=== PATIENT | female | born 1960 | race Caucasian/White ===

== ENCOUNTER 2020-09-29 10:23 | Outpatient (CLI) | payer MEDICARE, MEDICAID ==
[2020-09-29 11:07] LABS: BASOPHILS % (AUTO) 0.3 %; EOSINOPHILS # (AUTO) 0.1 10^3/uL (0.0-0.7); EOSINOPHILS % (AUTO) 1.2 %; HCT - HEMATOCRIT 45.2 % (37.0-47.0); HGB - HEMOGLOBIN 14.7 g/dL (12.0-16.0); LYMPHOCYTES % (AUTO) 26.6 %; MEAN CORPUSCULAR HEMOGLOBIN 30.6 pg (27.0-31.0); MEAN CORPUSCULAR HGB CONC 32.5 g/dL (32.0-36.0); MEAN CORPUSCULAR VOLUME 94.2 fL (81.0-99.0); MEAN PLATELET VOLUME 9.6 fL (7.9-10.8); MONOCYTES # (AUTO) 0.5 10^3/uL (0.0-1.0); MONOCYTES % (AUTO) 6.2 %; NEUTROPHILS % (AUTO) 65.4 %; PLT - PLATELET COUNT 243 10^3/uL (130-450); RED CELL DISTRIBUTION WIDTH 13.1 % (12.0-15.0); WHITE BLOOD COUNT 7.6 x10^3/uL (4.8-10.8)
[2020-09-29 11:26] LABS: ALBUMIN 4.4 g/dL (3.2-5.5); ALBUMIN/GLOBULIN RATIO 1.4 (1.0-2.2); ALKALINE PHOSPHATASE 60 IU/L (42-121); ALT ALANINE AMINOTRANSFERASE 17 IU/L (10-60); AST ASPARTATE AMINOTRANSFERASE 17 IU/L (10-42); BILIRUBIN,TOTAL 0.6 mg/dL (0.2-1.0); BUN - BLOOD UREA NITROGEN 15 mg/dL (6-20); CALCIUM 10.1 mg/dL (8.5-10.3); CARBON DIOXIDE - CO2 26 mmol/L (21-32); CHLORIDE 102 mmol/L (101-111); CHOL/HDL RATIO 4.4 (<4.4); CHOLESTEROL 188 mg/dL; CREATININE 0.8 mg/dL (0.4-1.0); GFR - MDRD 73 (>89); GLUCOSE 160 mg/dL (70-100); HDL CHOLESTEROL 43 mg/dL; LDL CHOLESTEROL,CALCULATED 116 mg/dL; LDL/HDL RATIO 2.7 (<4.4); POTASSIUM 3.8 mmol/L (3.5-5.0); SODIUM 138 mmol/L (135-145); TOTAL PROTEIN 7.6 g/dL (6.7-8.2); TRIGLYCERIDES 144 mg/dL; VLDL CHOLESTEROL 29 mg/dL
[2020-09-29 12:43] LABS: ESTIMATED AVERAGE GLUCOSE 148 mg/dL (70-100); HEMOGLOBIN A1c% 6.8 % (4.27-6.07)
== END 2020-09-29 10:24 | disposition home or self-care (01) ==
LOC: LAB 10:23
PROVIDERS: ATTEND Internal Medicine
DX: E78.5 Hyperlipidemia, unspecified (principal); Z79.899 Other long term (current) drug therapy; E11.9 Type 2 diabetes mellitus without complications
CPT/HCPCS: 36415; 80053; 80061; 83036; 83721; 85025

== ENCOUNTER 2021-05-04 12:54 | Outpatient (CLI) | payer MEDICARE, MEDICAID, OTHER | END 2021-05-04 12:55 | disposition home or self-care (01) | LOC: LAB 12:54 | PROVIDERS: ATTEND Internal Medicine | DX: E11.9 Type 2 diabetes mellitus without complications (principal); Z79.899 Other long term (current) drug therapy ==

== ENCOUNTER 2022-03-07 09:56 | Outpatient (CLI) | payer MEDICARE ==
[2022-03-07 10:18] LABS: BASOPHILS % (AUTO) 0.4 %; EOSINOPHILS # (AUTO) 0.1 10^3/uL (0.0-0.7); EOSINOPHILS % (AUTO) 1.1 %; HCT - HEMATOCRIT 45.2 % (37.0-47.0); HGB - HEMOGLOBIN 15.3 g/dL (12.0-16.0); LYMPHOCYTES % (AUTO) 25.6 %; MEAN CORPUSCULAR HEMOGLOBIN 31.5 pg (27.0-31.0); MEAN CORPUSCULAR HGB CONC 33.8 g/dL (32.0-36.0); MEAN PLATELET VOLUME 9.9 fL (7.9-10.8); MONOCYTES # (AUTO) 0.6 10^3/uL (0.0-1.0); MONOCYTES % (AUTO) 7.3 %; NEUTROPHILS # (AUTO) 5.2 10^3/uL (1.5-6.6); NEUTROPHILS % (AUTO) 65.3 %; PLT - PLATELET COUNT 234 10^3/uL (130-450); RED BLOOD COUNT 4.86 10^6/uL (4.20-5.40); RED CELL DISTRIBUTION WIDTH 12.7 % (12.0-15.0); WHITE BLOOD COUNT 7.9 x10^3/uL (4.8-10.8)
[2022-03-07 10:40] LABS: ALBUMIN 4.6 g/dL (3.2-5.5); ALBUMIN/GLOBULIN RATIO 1.4 (1.0-2.2); ALKALINE PHOSPHATASE 52 IU/L (42-121); ALT ALANINE AMINOTRANSFERASE 16 IU/L (10-60); AST ASPARTATE AMINOTRANSFERASE 17 IU/L (10-42); BILIRUBIN,TOTAL 0.7 mg/dL (0.2-1.0); BUN - BLOOD UREA NITROGEN 15 mg/dL (6-20); CALCIUM 10.1 mg/dL (8.5-10.3); CARBON DIOXIDE - CO2 26 mmol/L (21-32); CHLORIDE 108 mmol/L (101-111); CHOL/HDL RATIO 5.8 (<4.4); CHOLESTEROL 255 mg/dL; CREATININE 0.8 mg/dL (0.4-1.0); GFR - MDRD 73 (>89); GLUCOSE 140 mg/dL (70-100); HDL CHOLESTEROL 44 mg/dL; LDL CHOLESTEROL,CALCULATED 188 mg/dL; LDL/HDL RATIO 4.3 (<4.4); POTASSIUM 4.4 mmol/L (3.5-5.0); SODIUM 143 mmol/L (135-145); TOTAL PROTEIN 7.9 g/dL (6.7-8.2); TRIGLYCERIDES 113 mg/dL; VLDL CHOLESTEROL 23 mg/dL
[2022-03-07 10:49] LABS: CREATININE,URINE 165.9 mg/dL; MICROALBUM/CREATININE RATIO,UR 5.4 ug/mg (<30.0); MICROALBUMIN,URINE 0.9 mg/dL (0-300.0)
[2022-03-07 12:51] LABS: ESTIMATED AVERAGE GLUCOSE 146 mg/dL (70-100); HEMOGLOBIN A1c% 6.7 % (4.27-6.07)
== END 2022-03-07 09:57 | disposition home or self-care (01) ==
LOC: LAB 09:56
PROVIDERS: ATTEND Physician Assistant
DX: E11.9 Type 2 diabetes mellitus without complications (principal); E78.5 Hyperlipidemia, unspecified; Z79.899 Other long term (current) drug therapy
CPT/HCPCS: 36415; 80053; 80061; 82043; 82570; 83036; 83721; 85025

== ENCOUNTER 2022-04-08 10:45 | Outpatient (CLI) | payer MEDICARE ==
--- NOTE | 2022-04-11 10:04 | Mammography Report ---
UNILATERAL RIGHT DIGITAL DIAGNOSTIC MAMMOGRAM 3D/2D: 04/08/2022 CLINICAL: Patient returns for magnification views of microcalcifications in the right breast. Also, p atient returns for focal architectural distortion in the right breast. Comparison is made to exam dated: 02/21/2022 mammogram - [facility]. The right breast is heterogeneously dense, which may obscure small masses (category c / 51-75% glandu lar tissue). There are grouped fine dystrophic calcifications in the right breast at 10 o'clock posterior depth. There also is a possible benign architectural distortion in the right breast at 12 o'clock anterior d epth. This is not seen in additional views. No other significant masses or calcifications are seen in the breast. IMPRESSION: INCOMPLETE: NEEDS ADDITIONAL IMAGING EVALUATION The grouped fine dystrophic calcifications in the right breast at 10 o'clock posterior depth are inde terminate. A targeted ultrasound is recommended and will immediately follow. Based on the Tyrer Cuzick model (a risk assessment model) the patients lifetime risk is 7.5% and her 10 year risk is 3.1%. According to the ACR, ACS, and NCCN guidelines, an annual breast MRI exam saige g with mammogram is recommended if the patients lifetime risk is 20% or greater. This exam was interpreted at Station ID: [id number]. NOTE: For mammograms, a report in lay terms will be sent to the patient. Approximately 15% of breast malignancies will not be visualized mammographically. In the management of a palpable breast mass, a negative mammogram must not discourage biopsy of a clinically suspicious lesion. Electronically Signed By: Rigo Monk M.D. slc/:04/08/2022 11:37:09 ACR BI-RADS Category 0: Incomplete 3340F PARENCHYMAL PATTERN: (D) - The breast(s) demonstrate(s) heterogeneously dense fibroglandular pargabriel ma. BI-RADS CATEGORY: (0) - 0 Ultrasound [id number] Immediate follow-up LATERALITY: (B)
--- NOTE | 2022-04-11 10:05 | Ultrasound Report ---
LIMITED ULTRASOUND OF RIGHT BREAST AND AXILLA: 04/08/2022 CLINICAL: Patient returns today to evaluate a focal asymmetry in the right breast. Comparison is made to exams dated: 04/08/2022 mammogram and 02/21/2022 mammogram - [facility]. Color flow and real-time ultrasound of the right breast 10 o'clock, and axilla regions were performed . Sherwood scale images of the real-time examination were reviewed. There is a 1.9 cm x 1.3 cm x 0.9 cm irregular mass in the right breast at 10 o'clock posterior depth 9 cm from the nipple. This irregular mass is hypoechoic. This correlates with mammography findings. There are related micro calcifications. Color flow imaging demonstrates that there is vascularity present. There also is a 1.2 cm x 1.1 cm x 0.5 cm oval mass with a circumscribed margin in the right breast at 10 o'clock middle depth 7 cm from the nipple. This oval mass is hypoechoic with a well-defined boun jb. This correlates as an incidental finding. Color flow imaging demonstrates that there is vascu larity present. This mass is located 2.4 cm from the irregular mass. No significant abnormalities were seen sonographically in the right axilla. IMPRESSION: SUSPICIOUS OF MALIGNANCY 1) The 1.9 cm x 1.3 cm x 0.9 cm irregular mass in the right breast at 10 o'clock posterior depth is a t a moderate suspicion for malignancy. -An ultrasound guided biopsy is recommended. 2) The 1.2 cm x 1.1 cm x 0.5 cm oval mass in the right breast at 10 o'clock middle depth resembles a fibroadenoma and is at a low suspicion for malignancy. This is located 2.4 cm from the above mass. -Given the proximity to the suspicious irregular mass, biopsy can be deferred at this time. 3) No suspicious right axillary nodes demonstrated. Exam findings were discussed with the patient by Dr. Bae. This exam was interpreted at Station ID: [id number]. Electronically Signed By: Rigo Monk M.D. slc/:04/08/2022 13:10:45 Ultrasound BI-RADS: 4b Moderate suspicion of malignancy BI-RADS CATEGORY: (4b) - Mod Susp Biopsy [id number] Immediate follow-up LATERALITY: (R)
== END 2022-04-08 10:46 | disposition home or self-care (01) ==
LOC: DI 10:45
PROVIDERS: ATTEND Physician Assistant
DX: N63.11 Unspecified lump in the right breast, upper outer quadrant (principal)

== ENCOUNTER 2022-04-14 12:47 | Outpatient (CLI) | payer MEDICARE ==
[~2022-04-14 12:47] MED LIST: LIDOCAINE 1%-EPI 1:100000 20 ML MDV ONE; lidocaine 1% 20 ML MDV ONE
[2022-04-14] MEDS ORDERED: lidocaine 1% 20 ML MDV SUBQ ONE (14:25)
[2022-04-14] MEDS ORDERED: LIDOCAINE 1%-EPI 1:100000 20 ML MDV SUBQ ONE (14:26)
--- NOTE | 2022-04-18 10:17 | Mammography Report ---
UNILATERAL RIGHT DIGITAL DIAGNOSTIC MAMMOGRAM 3D/2D: 04/14/2022 CLINICAL: Post right breast ultrasound biopsy clip placement imaging. Comparison is made to exams dated: 04/08/2022 mammogram and 02/21/2022 mammogram - [facility]. The right breast is heterogeneously dense, which may obscure small masses (category c / 51-75% gland ular tissue). There is a mass in the right breast posterior depth lateral region seen on the craniocaudal view only . There also is a marker clip in the appropriate position in the right breast posterior depth central t o the nipple seen on the mediolateral oblique view only. This marker clip placement is at the biopsy site. No other significant masses or calcifications are seen in the breast. IMPRESSION: INCOMPLETE: NEEDS ADDITIONAL IMAGING EVALUATION The mass in the right breast posterior depth lateral region seen on the craniocaudal view only needs additional evaluation. There was a successful marker clip placement in the right breast posterior depth central to the nippl e seen on the mediolateral oblique view only. Based on the Tyrer Cuzick model (a risk assessment model) the patients lifetime risk is 7.5% and her 10 year risk is 3.1%. According to the ACR, ACS, and NCCN guidelines, an annual breast MRI exam saige g with mammogram is recommended if the patients lifetime risk is 20% or greater. This exam was interpreted at Station ID: [id number]. NOTE: For mammograms, a report in lay terms will be sent to the patient. Approximately 15% of breast malignancies will not be visualized mammographically. In the management of a palpable breast mass, a negative mammogram must not discourage biopsy of a clinically suspicious lesion. Electronically Signed By: Darrel delacruz/zulema:04/14/2022 14:49:11 ACR BI-RADS Category 0: Incomplete 3340F PARENCHYMAL PATTERN: (D) - The breast(s) demonstrate(s) heterogeneously dense fibroglandular parenchy ma. BI-RADS CATEGORY: (0) - 0 RECOMMENDATION: (ADDMAM) - Recommend additional mammographic views. recall n/a LATERALITY: (B)
--- NOTE | 2022-04-25 09:19 | Ultrasound Report ---
MULTIPLE ULTRASOUND GUIDED BIOPSIES RIGHT BREAST USING VACUUM DEVICE WITH MARKING DEVICE INSERTED AND POST MAMMOGRAPHIC IMAGIN04/14/2022 CLINICAL: Right breast mass. PATIENT CONSENT: Risks (minor bleeding, infection, vasovagal reaction and repeat procedure), benefits and alternatives were explained to the patient and written informed consent was obtained. Correlation is made to exams dated: 04/14/2022 mammogram, 04/08/2022 ultrasound, 04/08/2022 mammogram, and 02/21/2022 mammogram - Located within [facility]. An ultrasound guided biopsy using real-time ultrasound was performed for the concerning 1.9 cm x 1.3 cm x 0.9 cm indistinct oval mass located in the right breast at 10 o'clock posterior depth 9 cm from the nipple. This was described on the previous ultrasound report. The skin was prepped in the usual manner. Local anesthetic was administered to the access site. A small incision was made in the casey ast. The abnormality was approached from the lateral aspect. A 13 gauge biopsy needle was placed ad jacent to the abnormality under ultrasound guidance. Once the needle was documented to be in the cor rect location, six specimens were obtained using the Mammotome biopsy system. A hydromark T4 clip wa s inserted into the biopsy cavity. A skin closure strip and a sterile dressing were applied to the a ccess site. Post procedure mammographic imaging demonstrates the location device at the targeted are a. The specimens were sent to the laboratory for pathological analysis. A second ultrasound guided biopsy using real-time ultrasound was performed for the 1.2 cm x 1.1 cm x 0.5 cm abnormality located in the right breast at 10 o'clock middle depth 7 cm from the nipple. The skin was prepped in the usual manner. A biopsy needle was placed adjacent to the abnormality under u ltrasound guidance. Once the needle was documented to be in the correct location, a specimen was obt ained using an automated biopsy gun. The specimen was sent to the laboratory for pathological analys is. IMPRESSION: ULTRASOUND GUIDED BIOPSY BENIGN Ultrasound guided biopsy of the 1.9 cm x 1.3 cm x 0.9 cm mass in the right breast at 10 o'clock poste rior depth 9 cm from the nipple was successful. "Pathology indicates fibrofatty breast parenchyma wi th ectatic and focally ruptured ducts. Fibrocystic changes". Pathology and radiology results are conc ordant. Recommend follow up right mammogram and ultrasound in 6 months to document stability. This exam was interpreted at Station ID: [id number]. Darrel Solis M.D. [facility],aty/:04/22/2022 22:05:35 BI-RADS CATEGORY: () - Mammo and [place] [id number] 6 month follow-up LATERALITY: (R)
== END 2022-04-14 12:48 | disposition home or self-care (01) ==
LOC: DI 12:47
PROVIDERS: ATTEND Physician Assistant
DX: N60.11 Diffuse cystic mastopathy of right breast (principal)
CPT/HCPCS: 19083

== ENCOUNTER 2022-07-08 13:06 | Outpatient (CLI) | payer MEDICARE ==
--- NOTE | 2022-07-08 15:10 | CT Report ---
PROCEDURE: CHEST WO INDICATIONS: PULMONARY NODULE TECHNIQUE: Noncontrast 1mm axial images were acquired from the pulmonary apices to the posterior costophrenic an gles. Axial 5 mm soft tissue kernel reconstructions were performed as well as 8 mm axial MIP and cor onal and sagittal 5 mm reformations. For radiation dose reduction, the following was used: automate d exposure control, adjustment of mA and/or kV according to patient size. COMPARISON: 02/21/2022 FINDINGS: Image quality: Excellent. Lungs and pleura: Again noted is a very subtle groundglass opacity with mild spiculations in the rela tively central portion of the right lower lobe. When comparing current image 159/14 previous image 17 2/4, there is a suggestion that it may be slightly increased in density compared to the previous stud y. The overall measurements are not significantly changed. It measures approximately 12 x 10 x 8 mm. No new or increasing pulmonary nodules. Calcified granuloma or hamartoma again noted in the medial r ight apex on current image 62/4. No acute air space opacities. No pleural effusions or pneumothorax. Central and peripheral airways are patent and normal in caliber. Mediastinum: Heart size is normal. No pericardial effusion. No mediastinal adenopathy by size crit eria. Thoracic aorta and central pulmonary arteries are normal in size. Esophagus is normal in arthur josé miguel. No hiatal hernia. Bones and chest wall: No suspicious bony lesions. No vertebral body compression fractures. No axil kermit or supraclavicular adenopathy by size criteria. The thyroid is normal in size and there are no incidental findings. Abdomen: Visualized upper abdominal solid organs and bowel loops appear normal in the absence of con trast. IMPRESSION: 1. The overall size of the groundglass opacity in the right lower lobe is not significantly changed. However, there is a suggestion that there may be slight interval increase in density. This can potent ially represent a small indolent carcinoma in situ. Therefore, recommend repeat CT in 6 months. CLINICAL RECOMMENDATION STATEMENTS: In patients <35 years with an ITN detected on CT, MRI, or extrathyroidal ultrasound, the Committee re commends further evaluation with dedicated thyroid ultrasound if the nodule is "e1 cm and has no susp icious imaging features, and if the patient has normal life expectancy. In patients "e35 years with an ITN detected on CT, MRI, or extrathyroidal ultrasound, the Committee r ecommends further evaluation with dedicated thyroid ultrasound if the nodule is "e1.5 cm and has no s uspicious imaging features, and if the patient has normal life expectancy. (ACR, 2014) Reviewed by: Darrel Sinha MD on 07/08/2022 3:09 PM PST Approved by: Darrel Sinha MD on 07/08/2022 3:09 PM PST Station ID: [id number]
== END 2022-07-08 13:07 | disposition home or self-care (01) ==
LOC: DI 13:06
PROVIDERS: ATTEND Physician Assistant
DX: R91.8 Other nonspecific abnormal finding of lung field (principal)

== ENCOUNTER 2022-08-12 10:15 | Outpatient (CLI) | payer MEDICARE ==
[2022-08-12 11:01] LABS: CALCIUM 9.7 mg/dL (8.5-10.3); CREATININE 0.9 mg/dL (0.4-1.0); POTASSIUM 4.1 mmol/L (3.5-5.0)
[2022-08-12 11:06] LABS: CREATININE,URINE 126.5 mg/dL; MICROALBUM/CREATININE RATIO,UR 7.9 ug/mg (<30.0)
[2022-08-12 12:11] LABS: ESTIMATED AVERAGE GLUCOSE 151 mg/dL (70-100); HEMOGLOBIN A1c% 6.9 % (4.27-6.07)
== END 2022-08-12 10:16 | disposition home or self-care (01) ==
LOC: LAB 10:15
PROVIDERS: ATTEND Physician Assistant
DX: E11.9 Type 2 diabetes mellitus without complications (principal)
CPT/HCPCS: 36415; 80048; 82043; 82570; 83036

== ENCOUNTER 2022-11-12 08:26 | Outpatient (CLI) | payer MEDICARE, MEDICAID ==
[2022-11-12 08:53] LABS: CALCIUM 9.6 mg/dL (8.5-10.3); CREATININE 0.8 mg/dL (0.4-1.0); POTASSIUM 4.2 mmol/L (3.5-5.0)
[2022-11-12 11:36] LABS: ESTIMATED AVERAGE GLUCOSE 151 mg/dL (70-100); HEMOGLOBIN A1c% 6.9 % (4.27-6.07)
== END 2022-11-12 08:27 | disposition home or self-care (01) ==
LOC: LAB 08:26
PROVIDERS: ATTEND Physician Assistant
DX: E11.9 Type 2 diabetes mellitus without complications (principal)
CPT/HCPCS: 36415; 80048; 83036

== ENCOUNTER 2023-01-12 06:20 | Day surgery (SDC) | payer MEDICARE, MEDICAID ==
[2023-01-12] MEDS ORDERED: LACTATED RINGERS 1,000 ML IV ONE ×2 (06:43→08:12)
--- NOTE | 2023-01-12 06:58 | ANESTHESIA ---
Pre-Anesthesia VS, & Labs - Diagnosis hx of colon polyps - Procedure colonoscopy Vital Signs: Temp Pulse Resp BP Pulse Ox O2 Flow Rate 36.3 C L 69 10 L 126/90 H 96 0 01/12/23 06:43 01/12/23 06:43 01/12/23 06:43 01/12/23 06:43 01/12/23 06:43 01/12/23 06:43 Height: 5 ft 5 in Weight (kg): 69.4 kg Body Mass Index: 25.4 BMI Classification: Overweight - NPO >8 hours - Is Patient ?: No - Lab Results Current Lab Results: Laboratory Tests 01/12/23 06:49: POC Whole Bld Glucose 142 H Lab results reviewed: Yes Home Medications and Allergies Home Medications: Ambulatory Orders Acyclovir 400 mg PO DAILY 01/11/23 Atorvastatin [Lipitor] 10 mg PO DAILY 01/11/23 Empagliflozin [Jardiance] 10 mg pe PO DAILY 01/11/23 QUEtiapine [SEROquel] 25 mg PO DAILY 01/11/23 buPROPion [Wellbutrin Sr] 300 mg PO DAILY 01/11/23 Acyclovir 400 mg PO DAILY 01/11/23 Atorvastatin [Lipitor] 10 mg PO DAILY 01/11/23 Empagliflozin [Jardiance] 10 mg pe PO DAILY 01/11/23 QUEtiapine [SEROquel] 25 mg PO DAILY 01/11/23 buPROPion [Wellbutrin Sr] 300 mg PO DAILY 01/11/23 Allergies/Adverse Reactions: Allergies Allergy/AdvReac Type Severity Reaction Status Date / Time No Known Drug Allergies Allergy Verified 01/11/23 12:27 Anes History & Medical History - Anesthetic History Anesthesia Complications: reports: No previous complications Family history of Anesthesia Complications: Denies Family history of Malignant Hyperthermia: Denies - Medical History Cardiovascular: reports: High cholesterol Pulmonary: reports: COPD (was diagnosed, but claims diagnosis was removed.) Gastrointestinal: reports: Colon polyps, Chronic constipation Urinary: reports: None Musculoskeletal: reports: Osteoarthritis, Rheumatoid arthritis Endocrine/Autoimmune: reports: Type 2 diabetes Skin: reports: Eczema Smoking Status: Current every day smoker Psychosocial: reports: Cannabis - Surgical History General: reports: Colonoscopy Gynecologic: reports: Hysterectomy Exam General: Alert, Oriented x3, Cooperative Dental: Dentures full Upper, Dentures full Lower Mouth Openin Fingerbreadth Neck Mobility: Normal Mallampati classification: II Thyromental Distance: 4-6 cm Respiratory: Lungs clear Cardiovascular: Regular rate Plan Anesthesia Type: General Consent for Procedure(s) Verified and Reviewed: Yes Code Status: Attempt Resuscitation ASA classification: 2-Mild systemic disease Is this case an emergency?: No
[2023-01-12] MEDS ORDERED: PROPOFOL 500 MG/50 ML 500 MG/50 ML VIAL ONE (07:05)
[2023-01-12] MEDS ORDERED: PROPOFOL 200 MG/20 ML VIAL IVP ONE (08:00)
[2023-01-12 08:51] VITALS: BP 110/84
--- NOTE | 2023-01-12 15:10 | ANESTHESIA POST OP EVALUATION ---
Anesthesia Post Eval - Post Anesthesia Eval Vitals: Last Vital Signs Temp 36.3 C L 01/12/23 08:43 Pulse 69 01/12/23 08:43 Resp 17 01/12/23 08:43 BP 110/84 H 01/12/23 08:43 Pulse Ox 98 01/12/23 08:43 O2 Flow Rate 0 01/12/23 06:43 CV Function Including HR & BP: Stable Pain Control: Satisfactory Nausea & Vomiting: Negative Mental Status: Baseline Respiratory Status: Airway Patent Hydration Status: Satisfactory Anesthesia Complications: None
== END 2023-01-12 06:21 | disposition home or self-care (01) ==
LOC: SDS 06:20
PROVIDERS: ATTEND Surgery
PROC: 0DBF8ZX Excision of Right Large Intestine, Via Natural or Artificial Opening Endoscopic, Diagnostic (ICD-10-PCS; 2023-01-12)
PROC: 0DBG8ZX Excision of Left Large Intestine, Via Natural or Artificial Opening Endoscopic, Diagnostic (ICD-10-PCS; 2023-01-12)
PROC: 0DBM8ZZ Excision of Descending Colon, Via Natural or Artificial Opening Endoscopic (ICD-10-PCS; principal; 2023-01-12 07:30)
DX: R19.4 Change in bowel habit (principal); K63.5 Polyp of colon; K57.30 Diverticulosis of large intestine without perforation or abscess without bleeding; D17.79 Benign lipomatous neoplasm of other sites; K64.9 Unspecified hemorrhoids; K64.4 Residual hemorrhoidal skin tags; E11.9 Type 2 diabetes mellitus without complications; Z79.84 Long term (current) use of oral hypoglycemic drugs; F17.200 Nicotine dependence, unspecified, uncomplicated; J44.9 Chronic obstructive pulmonary disease, unspecified
CPT/HCPCS: 45380; 45385; J7120

== ENCOUNTER 2023-01-31 12:38 | Outpatient (CLI) | payer MEDICARE, MEDICAID ==
--- NOTE | 2023-02-01 11:04 | Mammography Report ---
UNILATERAL RIGHT DIGITAL DIAGNOSTIC MAMMOGRAM 3D/2D: 01/31/2023 CLINICAL: Patient returns for a 6 month follow up of the right breast. Comparison is made to exams dated: 04/14/2022 mammogram, 04/08/2022 mammogram, 02/21/2022 mammogram, ultrasound biopsy, and 04/08/2022 ultrasound - [facility]. The right breast is heterogeneously dense, which may obscure small masses (category c / 51-75% glandu lar tissue). There are stable benign grouped fine dystrophic calcifications in the right breast at 10 o'clock post erior depth. This correlates with the prior benign biopsy. There also is a possible benign architectural distortion in the right breast at 12 o'clock anterior d epth. This is not seen in additional views. No other significant masses or calcifications are seen in the breast. IMPRESSION: INCOMPLETE: NEEDS ADDITIONAL IMAGING EVALUATION No mammographic evidence of malignancy. A targeted ultrasound is recommended for the previously seen right breast masses and will immediately follow. Based on the Tyrer Cuzick model (a risk assessment model) the patients lifetime risk is 7.3% and her 10 year risk is 3.1%. According to the ACR, ACS, and NCCN guidelines, an annual breast MRI exam saige g with mammogram is recommended if the patients lifetime risk is 20% or greater. This exam was interpreted at Station ID: [id number]. NOTE: For mammograms, a report in lay terms will be sent to the patient. Approximately 15% of breast malignancies will not be visualized mammographically. In the management of a palpable breast mass, a negative mammogram must not discourage biopsy of a clinically suspicious lesion. Electronically Signed By: Rigo Monk M.D. slc/:01/31/2023 14:18:31 ACR BI-RADS Category 0: Incomplete 3340F PARENCHYMAL PATTERN: (D) - The breast(s) demonstrate(s) heterogeneously dense fibroglandular parenchy ma. BI-RADS CATEGORY: (0) - 0 Ultrasound [id number] Immediate follow-up LATERALITY: (B)
--- NOTE | 2023-02-01 11:04 | Ultrasound Report ---
LIMITED ULTRASOUND OF RIGHT BREAST: 01/31/2023 CLINICAL: 6 month follow-up biopsy. Comparison is made to exams dated: 01/31/2023 mammogram, 04/14/2022 ultrasound biopsy, 04/14/2022 mammo gram, 04/08/2022 ultrasound, 04/08/2022 mammogram, and 02/21/2022 mammogram - [facility]. Color flow and real-time ultrasound of the right breast 10 o'clock and 12 o'clock regions were perfor med. Sherwood scale images of the real-time examination were reviewed. There is a 1 cm x 0.9 cm x 0.6 cm oval mass with a circumscribed margin in the right breast at 10 o'c lock middle depth 7 cm from the nipple. This oval mass is hypoechoic with a well-defined boundary. This abnormality is not significantly changed and correlates as an incidental finding. Color flow im aging demonstrates that there is no vascularity present. There also is a benign 1.9 cm x 1 cm x 0.5 cm irregular mass in the right breast at 10 o'clock chemical production technician ior depth 9 cm from the nipple. This irregular mass is hypoechoic. This abnormality is decreased in size and correlates with mammography findings and the previous biopsy. There are related micro calc ifications. Additionally, there is a benign 0.5 cm simple cyst in the right breast at 12 o'clock posterior depth 5 cm from the nipple. This correlates as an incidental finding. Color flow imaging demonstrates dereck t there is no vascularity present. No mass in this region. IMPRESSION: PROBABLY BENIGN The 1 cm circumscribed mass in the right breast at 10 o'clock 7 cm from the nipple is most likely a f ibroadenoma and is probably benign. -A follow-up ultrasound in 6 months is recommended to demonstrate stability. The 1.9 cm irregular mass in the right breast at 10 o'clock posterior depth is consistent with biopsy proven fibrocystic change and is stable in appearance and is benign. The 0.5 cm simple cyst in the right breast at 12 o'clock posterior depth is benign. Exam findings were conveyed to the patient. Patient is advised to monitor for significant change. Patient is due for left breast mammogram when feasible. This exam was interpreted at Station ID: [id number]. Electronically Signed By: Rigo Monk M.D. slc/:01/31/2023 14:28:23 Ultrasound BI-RADS: 3 Probably benign BI-RADS CATEGORY: (3) - 3 Ultrasound [id number] 6 month follow-up LATERALITY: (B)
== END 2023-01-31 12:39 | disposition home or self-care (01) ==
LOC: DI 12:38
PROVIDERS: ATTEND Physician Assistant
DX: N63.11 Unspecified lump in the right breast, upper outer quadrant (principal); N60.01 Solitary cyst of right breast

== ENCOUNTER 2023-05-22 09:44 | Outpatient (CLI) | payer MEDICARE, MEDICAID ==
[2023-05-22 10:08] LABS: BASOPHILS # (AUTO) 0.1 10^3/uL (0.0-0.1); BASOPHILS % (AUTO) 0.6 %; EOSINOPHILS # (AUTO) 0.2 10^3/uL (0.0-0.7); HGB - HEMOGLOBIN 14.8 g/dL (12.0-16.0); LYMPHOCYTES # (AUTO) 2.5 10^3/uL (1.5-3.5); LYMPHOCYTES % (AUTO) 30.9 %; MEAN CORPUSCULAR HEMOGLOBIN 29.8 pg (27.0-31.0); MEAN CORPUSCULAR HGB CONC 32.2 g/dL (32.0-36.0); MEAN CORPUSCULAR VOLUME 92.6 fL (81.0-99.0); MEAN PLATELET VOLUME 9.3 fL (7.9-10.8); MONOCYTES # (AUTO) 0.7 10^3/uL (0.0-1.0); MONOCYTES % (AUTO) 8.3 %; NEUTROPHILS # (AUTO) 4.6 10^3/uL (1.5-6.6); NEUTROPHILS % (AUTO) 57.9 %; PLT - PLATELET COUNT 211 10^3/uL (130-450); RED BLOOD COUNT 4.97 10^6/uL (4.20-5.40); RED CELL DISTRIBUTION WIDTH 13.4 % (12.0-15.0)
[2023-05-22 10:39] LABS: ALBUMIN 4.4 g/dL (3.2-5.5); ALBUMIN/GLOBULIN RATIO 1.8 (1.0-2.2); ALKALINE PHOSPHATASE 54 IU/L (42-121); ALT ALANINE AMINOTRANSFERASE 9 IU/L (10-60); AST ASPARTATE AMINOTRANSFERASE 12 IU/L (10-42); BILIRUBIN,TOTAL 0.4 mg/dL (0.2-1.0); BUN - BLOOD UREA NITROGEN 16 mg/dL (6-20); CALCIUM 9.6 mg/dL (8.5-10.3); CARBON DIOXIDE - CO2 26 mmol/L (21-32); CHLORIDE 110 mmol/L (101-111); CHOL/HDL RATIO 3.7 (<4.4); CHOLESTEROL 166 mg/dL; CREATININE 0.7 mg/dL (0.6-1.3); GFR - MDRD 85 (>89); GLUCOSE 100 mg/dL (74-104); HDL CHOLESTEROL 45 mg/dL; LDL CHOLESTEROL,CALCULATED 100 mg/dL; LDL/HDL RATIO 2.2 (<4.4); POTASSIUM 4.1 mmol/L (3.5-4.5); SODIUM 141 mmol/L (135-145); TOTAL PROTEIN 6.8 g/dL (6.4-8.9); TRIGLYCERIDES 107 mg/dL (48-352); VLDL CHOLESTEROL 21 mg/dL
[2023-05-22 13:07] LABS: ESTIMATED AVERAGE GLUCOSE 143 mg/dL (70-100); HEMOGLOBIN A1c% 6.6 % (4.27-6.07)
== END 2023-05-22 09:45 | disposition home or self-care (01) ==
LOC: LAB 09:44
PROVIDERS: ATTEND Physician Assistant
DX: E11.9 Type 2 diabetes mellitus without complications (principal)
CPT/HCPCS: 36415; 80053; 80061; 83036; 83721; 85025

== ENCOUNTER 2024-02-26 08:55 | Outpatient (CLI) | payer MEDICARE, MEDICAID ==
[2024-02-26 09:08] LABS: BASOPHILS % (AUTO) 0.5 %; EOSINOPHILS # (AUTO) 0.1 10^3/uL (0.0-0.7); EOSINOPHILS % (AUTO) 1.2 %; HCT - HEMATOCRIT 44.9 % (37.0-47.0); HGB - HEMOGLOBIN 14.5 g/dL (12.0-16.0); LYMPHOCYTES # (AUTO) 2.2 10^3/uL (1.5-3.5); LYMPHOCYTES % (AUTO) 25.6 %; MEAN CORPUSCULAR HEMOGLOBIN 30.5 pg (27.0-31.0); MEAN CORPUSCULAR HGB CONC 32.3 g/dL (32.0-36.0); MEAN CORPUSCULAR VOLUME 94.5 fL (81.0-99.0); MEAN PLATELET VOLUME 9.3 fL (7.9-10.8); MONOCYTES # (AUTO) 0.6 10^3/uL (0.0-1.0); MONOCYTES % (AUTO) 7.1 %; NEUTROPHILS # (AUTO) 5.7 10^3/uL (1.5-6.6); NEUTROPHILS % (AUTO) 65.4 %; PLT - PLATELET COUNT 264 10^3/uL (130-450); RED BLOOD COUNT 4.75 10^6/uL (4.20-5.40); RED CELL DISTRIBUTION WIDTH 14.6 % (12.0-15.0); WHITE BLOOD COUNT 8.6 x10^3/uL (4.8-10.8)
[2024-02-26 09:27] LABS: ALBUMIN 4.2 g/dL (3.2-5.5); ALBUMIN/GLOBULIN RATIO 1.4 (1.0-2.2); BILIRUBIN,TOTAL 0.5 mg/dL (0.2-1.0); CALCIUM 9.8 mg/dL (8.5-10.3); CREATININE 0.8 mg/dL (0.6-1.3); POTASSIUM 4.1 mmol/L (3.5-4.5); TOTAL PROTEIN 7.1 g/dL (6.4-8.9)
[2024-02-26 09:48] LABS: CREATININE,URINE 89.5 mg/dL; MICROALBUM/CREATININE RATIO,UR 11.2 ug/mg (<30.0)
[2024-02-26 09:58] LABS: ESTIMATED AVERAGE GLUCOSE 128 mg/dL (70-100); HEMOGLOBIN A1c% 6.1 % (4.27-6.07)
== END 2024-02-26 08:56 | disposition home or self-care (01) ==
LOC: LAB 08:55
PROVIDERS: ATTEND Physician Assistant
DX: E11.9 Type 2 diabetes mellitus without complications (principal)
CPT/HCPCS: 36415; 80053; 82043; 82570; 83036; 85025